=== PATIENT | female | born 1940 | race Caucasian/White ===

== ENCOUNTER 2016-09-28 20:02 | Emergency (ER) | payer MEDICARE ==
--- NOTE | 2016-09-28 20:45 | ERNOTE ---
Chest Pain/Cardiac HPI Chief Complaint: Tachycardia Time Seen by Provider: 09/28/16 20:31 Source: patient Exam Limitations: no limitations Immunizations: IMMUNIZATION HX Immunizations Up to Date Yes History of Influenza Vaccine Yes Hx Pneumococcal Vaccination Yes Allergies/Adverse Reactions: Allergies penicillin G Adverse Reaction (Verified 09/28/16 20:09) Home Medications: HOME MEDICATIONS Levothyroxine Sodium [Synthroid] 25 mcg PO MOFR 09/28/16 [Last Taken Unknown] Levothyroxine Sodium [Synthroid] 50 mcg PO SUTUWETHSA 09/28/16 [Last Taken Unknown] Lovastatin 40 mg PO DAILY 09/28/16 [Last Taken Unknown] Narrative: Pt has had PAC's for nearly a year, since last week she has had more palpitations that last longer and seem more "fluttering" than her usual PAC's Timing: getting worse Severity/Quality: moderate Location: central Activities at Onset: sleep Modifying Factors - Improves: Present: nothing Modifying Factors - Worsens: Present: nothing Nitro Today/Relief: no nitro taken today Aspirin Treatment Today: no aspirin today Prior Chest Pain/Cardiac Workup: Denies: prior chest pain Review of Systems - Review of Systems Constitutional: Absent: recent illness EYE: Present: no symptoms reported ENT: Present: other - Jaw pain (pressure) left side. Absent: nose congestion Respiratory: Absent: shortness of breath Cardiology: Present: See HPI Gastrointestinal/Abdominal: Present: other - dyspepsia occasionally Genitourinary: Present: no symptoms reported Musculoskeletal: Absent: back pain, muscle pain Skin: Present: no symptoms reported Neurological: Present: no symptoms reported Endocrine: Absent: excessive sweating, flushing Hematologic/Lymphatic: Present: no symptoms reported Psych: Present: no symptoms reported - Patient's Past Medical History Patient History - Medical: Hypothyroidism, Other Patient History - Cardiac/Respiratory: Arrhythmias, Hyperlipidemia Patient History - Cancer: No Hx of Cancer Patient History - Surgical Procedures: Other - Social History Living Situations: home Psych History: No pertinent hx Smoking Status: Former smoker Have you smoked in the past 12 months: No Do you dip or chew tobacco: No Alcohol Use: none Drug Use: none - Immunizations Immunizations Up to Date: Yes Hx Pneumococcal Vaccination: Yes History of Influenza Vaccine: Yes Physical Exam - Physical Exam General Appearance: Present: wd/wn, alert, no apparent distress Eye Exam: Normal inspection: bilateral, PERRL: bilateral Ears, Nose, Throat: Present: normal ENT inspection Neck: Present: normal inspection, nontender Respiratory: Present: no respiratory distress, normal breath sounds, lungs clear Cardiovascular/Chest: Present: no murmur, extra beats Back Exam: Present: normal inspection, normal range of motion Extremity Exam: Present: normal inspection, normal range of motion, no edema Neurological Exam: Present: alert, oriented, normal mood/affect, no motor/ sensory deficits Skin Exam: Present: normal color, warm/dry Lymphatic Exam: Present: no adenopathy ED Progress - Results and Orders Patient's Lab Results:: I have reviewed the patient's lab results. Results and Orders: Laboratory Tests 09/28/16 09/28/16 20:45 21:01 WBC 11.4 H Hgb 15.3 Hct 45.4 Plt Count 322 Sodium 145 H Potassium 4.0 Chloride 108 H Carbon Dioxide 26.3 Anion Gap 14.7 H BUN 12 Creatinine 0.87 Est GFR (Non-Af Amer) 67 Random Glucose 109 Calcium 9.3 Total Bilirubin 0.9 AST 23 ALT 30 Alkaline Phosphatase 76 Troponin I Less than 0.017 Total Protein 7.5 Albumin 4.0 - Vital Signs Patient's Vital Signs:: I have reviewed the patient's vital signs. Vital Signs: Vital Signs 09/28/16 20:05 Temperature 37.0 C Pulse Rate 122 H Respiratory 18 Rate Blood Pressure 151/80 O2 Sat by Pulse 95 Oximetry - EKG EKG: nonspecific ST T wave changes - ST depression HR 112 EKG read: Interp. by me EKG Comments: After HR slowed down (90) EKG repeated. Repeat EKG showed NSR with frequent PVC 's, no ST changes. Left anterior fascicular block - X-Ray X-Ray #1 X-Ray: chest Interpretation: Interp. by me X-ray Comments: No cardiopulmonary abnormalities - Progress/Reassessment Chief Complaint: Tachycardia Progress:: Improved Progress Note-Subjective: 09/28/16 23:58 pt asymptomatic prior to discharge. no palpitations Due to her symptoms that suggest a longer arrhythmia then we have seen tonight and her only abnormality being frequent PVC's I have placed a holter monitor to rule out runs of V tach. Encouraged patient to return to the ER if she has worsening symptoms and see her PCP soon. Departure - Departure Clinical Impression: Palpitation Disposition: Home Follow Up Needed Condition: Good Instructions: Palpitations, [id number] Additional Instructions: have your records faxed to your regular doctor and follow up there as soon as possible. Return to ER if you have continued or worsening symptoms Referrals: ENEIDA MERCADO [Primary Care Provider] -
--- OUTSIDE RECORDS SUMMARY | 2016-09-28 20:47 | XMS REPORT | Continuity of Care Document ---
:1940 Author Organization [facility] ([facility]) Address [address] [place] [address] Phone [phone] Care Team Providers Name Role Phone Faith Perez Primary Care Provider [phone] Source Comments This disclosure is being made pursuant to the Care Everywhere program, applicable federal and state laws, and may not contain all informaitonavailable regarding this patient.[facility] ([facility]) Active Allergies and Adverse Reactions Allergen Noted Date Severity Reactions Comments Penicillins site of pcn injection hot et red; told would have to be skin tested Current Medications Prescription Sig. Disp. Refills Start Date End Date Status aspirin 81 mg tablet take 81 mg by Active mouth daily. CALCIUM Take 1 Tab by Active CARBONATE/VITAMIN D3 mouth daily. (CALTRATE-600 PLUS VITAMIN D3 PO) levothyroxine 25 mcg Take 1 tablet (25 90 tablet 11 12/08/2015 Active tablet mcg total) by mouth 2 times weekly. Mon and Michelet lovaSTATIN 40 mg tablet Take 1 tablet (40 90 tablet 12/08/2015 Active mg total) by mouth every evening. levothyroxine 50 mcg Take 1 tablet (50 90 tablet 12/08/2015 Active tablet mcg total) by mouth daily. Sun,Tues,Wed,Thur s,Sat. 25 mcg Mon & Fri artificial tears Instill onto both Active (GENTEAL) 0.3 % eyes at bedtime. ophthalmic gel artificial tears Instill 1 Drop Active (ARTIFICIAL TEARS) onto both eyes 3 ophthalmic solution times daily. NAPROXEN SODIUM (ALEVE Active PO) prednisoLONE sodium Instill 1 Drop 10 mL 0 02/28/2016 Active phosphate 1 % onto the left eye ophthalmic solution daily. lansoprazole 30 mg Take 30 mg by Active capsule mouth daily. loperamide 2 mg capsule Take 2 mg by Active mouth 4 times daily as needed. Active Problems Problem Noted Date Myopia of both eyes with astigmatism and presbyopia 08/28/2016 General medical exam 12/08/2015 Overview: Declines colon cancer screen History of pheochromocytoma 12/07/2015 Retinal detachment with single break 11/04/2015 Retinal angioma 11/04/2015 Cataract, left eye 02/26/2014 Macular hole of right eye 02/26/2014 Fuch's endothelial dystrophy 02/26/2014 Fracture of ankle, open 11/10/2013 Overview: Now fused, cannot reach 90 degrees Former smoker 11/10/2013 Overview: Less than 30 pack years H/O vaginal hysterectomy 11/08/2012 Overview: Has ovaries Osteopenia 11/08/2012 Overview: 2005 dexa -1.4 2015 T -1.7 Other and unspecified hyperlipidemia 12/26/2011 SK (seborrheic keratosis) 09/13/2009 Prediabetes 09/13/2009 Hypertriglyceridemia 09/13/2009 Hypothyroidism 09/11/2009 GERD (gastroesophageal reflux disease) 09/11/2009 Overview: 2009 failed pepcid, controlled with prevacid 15mg 2015 off PPI, occas TUMS/ pepcid OTC 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 The family is positive for the [place] von Hippel-Lindau disease mutation , not associated with renal cell [place] PATIENT HAD MULTIPLE LASERS IN THE PAST WITH DR. FONSECA. LAST ONE WAS ABOUT 4 YEARS AGO Right Eye Left Eye Time To Recurrence: Time To Recurrence: Date VA (D cc) CMT Status Procedure VA (D cc) CMT Status Procedure Cmts 12/14/2015 20/500 Focal laser (indirect) 20/20 -3 Palpitations 08/31/2008 Overview: occas PACs Resolved Problems Problem Noted Date Resolved Date General medical exam 09/21/2010 12/11/2011 Overview: Declines cscope Fracture, humerus closed 09/13/2009 12/11/2011 Overview: S/p ORIF left Hyperlipidemia LDL goal < 100 09/13/2009 12/26/2011 Other and unspecified hyperlipidemia 09/11/2009 12/11/2011 Endometriosis 09/11/2009 12/11/2011 S/P CYNTHIA (total abdominal hysterectomy) 09/11/2009 12/11/2011 Overview: Has ovaries Tachycardia, unspecified 08/31/2008 09/11/2009 Other abnormal blood chemistry 08/31/2008 09/11/2009 Unspecified disorder of kidney and ureter 06/30/2008 09/11/2009 Benign neoplasm of adrenal gland 06/29/2008 09/11/2009 Sensorineural hearing loss, unspecified 01/23/2008 09/11/2009 Difficulty in walking(719.7) 05/30/2006 09/11/2009 Enthesopathy of hip region 05/16/2006 09/11/2009 Nonspecific abnormal results of liver function study 04/19/2006 09/11/2009 Other screening mammogram 06/15/2005 03/16/2009 Unspecified disorder of adrenal glands 12/07/2004 03/16/2009 Other congenital hamartoses, not elsewhere classified 12/07/2004 09/11/2009 Encounter for long-term (current) use of other medications 07/07/20042008 Follow-up examination following completed treatment with 07/07/20042008 high-risk medications, not elsewhere classified Unspecified follow-up examination 07/07/2004 03/16/2009 Unspecified hypothyroidism 07/07/2004 09/11/2009 Pure hypercholesterolemia 07/07/2004 09/13/2009 Other and unspecified hyperlipidemia 07/07/2004 03/16/2009 Most Recent Encounters Date Type Specialty Providers Description 09/13/2016 Office Visit Ophthalmology - Ruma Barfield, Dx: Retinal Specialty hemangioblastomatosis (Primary Dx) 08/28/2016 Office Visit Ophthalmology - Subj: Appointment Scheduled Specialty 08/28/2016 Office Visit Ophthalmology - Subj: Appointment Scheduled Specialty 08/28/2016 Office Visit Ophthalmology - Poonam Bernal, Dx: Macular hole of right Specialty OD eye (Primary Dx) Ruma Barfield MD 08/28/2016 Office Visit Ophthalmology - Poonam Bernal, Dx: Myopia of both eyes Specialty OD with astigmatism and presbyopia (Primary Dx) Immunizations Name Dates Previously Given Next Due Influenza, unspecified 01/12/2014 Pneumococcal Conjugate, PCV13 (Prevnar 13) 12/02/2014 Pneumococcal, unspecified 05/14/2003 Td, adsorbed adult PF 06/15/2005 Tdap 11/08/2012 Social History Tobacco Use Types Packs/Day Years Used Date Former Smoker Cigarettes 2 40 Quit: 06/11/1978 Smokeless Tobacco: Former User Tobacco Cessation:Counseling Given: Yes Comments: Alcohol Use Drinks/Week oz/Week Comments Yes 2 Cans of beer 1.2 social Last Filed Vital Signs Vital Sign Reading Time Taken Blood Pressure 134/64 05/30/2016 10:15 AM JAIL GUARD Pulse 68 05/30/2016 10:15 AM JAIL GUARD Temperature 36.7 C (98.1 F) 05/30/2016 9:36 AM JAIL GUARD Respiratory Rate 18 05/30/2016 10:15 AM JAIL GUARD Height 1.778 m (5' 10") 05/30/2016 6:53 AM JAIL GUARD Weight 79 kg (174 lb 2.6 oz) 05/30/2016 6:16 AM JAIL GUARD Body Mass Index 24.99 05/30/2016 6:16 AM JAIL GUARD Oxygen Saturation 99% 05/30/2016 6:53 AM JAIL GUARD Plan of Care Patient Goal Type Goal Weight Weight below 75 kg (165 lb) Date Type Specialty Providers Description 10/18/2016 Appointment Ophthalmology - Ruma Barfield MD Subj: Appointment Specialty [address] [place] [address] [phone] (Fax) 12/08/2016 Appointment General Internal Faith Perez MD Subj: Appointment Medicine [address] [place] [address] [phone] (Fax) Health Maintenance Due Date Last Done Comments Zoster Vaccine 1998 Hepatitis B Vaccine (3 of 3 04/12/2014 11/10/2013 - Twinrix Series) (Declined), 11/08/2012 (Declined) Pneumococcal Vaccine (2 of 2 12/03/2015 12/02/2014 - PPSV23) Mammogram 04/29/2016 04/29/2015, Additional history exists 12/30/2012, 12/26/2011 Influenza Vaccine: Seasonal 12/12/2016 01/12/2014 (Season Ended) Lipid Disorder Screening 12/03/2019 12/02/2014, Additional history exists 11/10/2013, 11/08/2012 Td Vaccine 11/08/2022 11/08/2012, 06/15/2005 Colonoscopy 11/11/2023 11/10/2013 (Declined), 11/08/2012 (Declined) Tdap Vaccine Completed 11/08/2012 Osteoporosis Screening (DXA Completed 04/29/2015, Bone Density) 08/14/2005 Procedures from Last 3 Months Procedure Name Priority Date/Time Associated Diagnosis Comments SC DESTRUC Routine 09/13/2016 2:17 Retinal Results for this RETINAL PM CDT hemangioblastomatosis procedure are in DELFINO,PHOTOCOAG the results section. Results from Last 3 Months RETINA/CHOROID/VITREOUS PROCEDURE (09/13/2016 2:17 PM) Narrative Ruma Barfield MD 09/13/20162:17 PM Retinavitreous Injection Clinic Current Date: 09/13/2016 Subjective: Roxana Chung is a 76 y.o. female with a history of VHL with recurrent hemangioblastomas right eye History of Present Illness: Roxana Chung is a 76 y.o. female who returns today for continued management of retinal hemangioblastoma with laser. Her last injection was 2 weeks ago with Avastin in the right eye. She reports no problems with the previous injection.She reports that vision in the eye undergoing treatment seemsBetter. She got new glasses about a week ago. She reports more frequently when she lays down she sees a 'bright false pass' in the center of her vision in the right eye. The fellow eye remains stable. Active Problem List with Overview Notes Diagnosis Myopia of both eyes with astigmatism and presbyopia General medical exam Overview Note: Declines colon cancer screen History of pheochromocytoma Retinal detachment with single break Retinal angioma Cataract, left eye Macular hole of right eye Fuch's endothelial dystrophy Fracture of ankle, open Overview Note: Now fused, cannot reach 90 degrees Former smoker Overview Note: Less than 30 pack years H/O vaginal hysterectomy Overview Note: Has ovaries Osteopenia Overview Note: 2006 dexa -1.4 2015 T -1.7 Other and unspecified hyperlipidemia SK (seborrheic keratosis) Prediabetes Hypertriglyceridemia Hypothyroidism GERD (gastroesophageal reflux disease) Overview Note: 2009 failed pepcid, controlled with prevacid 15mg 2015 off PPI, occas TUMS/ pepcid OTC Retinal hemangioblastomatosis Overview Note: Right Eye Left Eye Time To Recurrence:Time To Recurrence: Date VA (D cc) CMT Status Procedure VA (D cc) CMT Status Procedure Cmts 08/28/2016 ECC Avastin lot #[id number] 20/40 +2 Pheochromocytoma, benign Overview Note: Asymptomic, removed 1987 Pseudophakia Nuclear sclerosis Von Hippel-Lindau syndrome Overview Note: The family is positive for the [place] von Hippel-Lindau disease mutation, not associated with renal cell [place] PATIENT HAD MULTIPLE LASERS IN THE PAST WITH DR. FONSECA. LAST ONE WAS ABOUT 4 YEARS AGO Right Eye Left Eye Time To Recurrence:Time To Recurrence: Date VA (D cc) CMT Status Procedure VA (D cc) CMT Status Procedure Cmts 12/14/2015 20/500 Focal laser (indirect) 20/20 -3 Palpitations Overview Note: occas PACs Review of Systems: General: negative Cardiovascular: no chest pain or dyspnea on exertion Respiratory: no cough, shortness of breath, or wheezing Gastrointestinal: no abdominal pain, change in bowel habits, or black or bloody stools Endocrine: negative Neurological: no TIA or stroke symptoms Objective: Base Eye Exam Visual Acuity (Snellen - Linear) Right Left Dist cc 20/800ecc 20/25 +2 Dist ph cc 20/600 NI Correction:Glasses Tonometry (Tonopen, 1:14 PM) Right Left Pressure 10 10 Pupils Dark Light React APD Right 7 7 Non-reactive None Left 3 2 Brisk None Neuro/Psych Oriented x3:Yes Mood/Affect:Normal Dilation Right eye:0.5% Tropicamide, 2.5% Phenylephrine @ 1:14 PM Slit Lamp and Fundus Exam External Exam Right Left External Normal Slit Lamp ExamRight Left Lids/Lashes Normal Conjunctiva/Sclera Clear and quiet Cornea Clear Anterior Chamber Deep and quiet Iris dilated Lens PCIOL, small opening in posteiror capsule centrally Vitreous removed Fundus Exam Right Left Disc perfused Macula attached, macular hole edges appear closed with central atrophy Vessels Angiomas fibrosed treated temporally and superonasally and inferiorly, no new angiomas visible. PeripheryRetina all attached 360 degrees on scleral buckle with extensive CR scarring in periphery especially inferiorly, temporally, superonasally. New angioblastoma superotemporally and inferotemporally less active than before AVastin injection. Test Results No OCT today Assessment: Encounter Diagnoses ICD-10-CM ICD-9-CM 1. 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 Plan: Treat today with focal laser to retinal hemangioblastomasin right eye(s). Patient will return to clinic in 1 month for repeat evaluation in the IRL procedure/injection clinic.No OCT needed.May need repeat injection or laser if angiomas still active. Staff Involved Staff Only Procedure: Procedure: Retina Focal laser (macular edema, small tumor) Laterality: right Additional Procedure Detail: Procedure type:Focal laser to retinal vascular tumors Pre-op diagnosis retinal hemangioblastoma (VHL) Post op diagnosis same Eye treated:rightEye(s) Surgeon:Ruma Barfield MD Transit Survey Worker:None Anesthesia topical: Laser system used:Diode green, slit lamp delivery Complications:none Procedure narrative: After obtaining informed consent, marking of the operative eye, and a time out, and review of allergies, the patient was placed at the slit lamp laser delivery system.One drop of proparacaine was administered to the operative eye.A [place] Quaspheric contact lens was applied to the eye.Using fundus photos taken before the intravitreal anti-VEGF therapy administration as a guide, confluent laser was applied to the two areas of early activity of the hemangioblastomas on the buckle superoempotally and inferotemporally # laser spots94 Spot size: 100 microns Power:190 mW Spot duration 240 mSec NO laser was applied in the posterior pole. The contact lens was removed from the eye. I performed the entire procedure.No resident or fellow participated in this procedure.Post procedure expectations and instructions were discussed and the patient was provided written information about the laser procedure in the AVS.The patient left the laser room in satisfactory condition. Ruma Barfield M.D. Clinical Professor of Ophthalmology and Visual Science Vitreoretinal Service EYE PROC - INTRAVITREAL INJECTION (09/01/2016 12:58 AM) Narrative Ruma Barfield MD 09/01/2016 12:58 AM Retinavitreous Service Clinic Note Encounter Date: 08/28/2016 Chief Complaint Chief Complaint Patient presents with Decreased Visual Acuity Bernal refraction then Gehrs 2 mo History of Present Illness Roxana Chung is a 76 y.o. here today for blurred vision affecting right eye for 9 months.These symptoms are described as moderate.Symptoms occur all of the time. Since onset, the symptoms have improved, but has remained stable since the last. Modifying factors include PPV/SBP/cryo/laser/FTMH repair in the right eye with oil/C3F8- small volume (11-04-15) for retinal detachment and focal laser right eye for retinal hemangioblastoma (12/14/15) and Pars plana vitrectomy (23 gauge), silicone oil removal, posterior capsulotomy, air-fluid exchange, 15% SF6 gas RIGHT eye (05/30/16) which makes the symptoms improved.She experiences occasional flashes of light in the right temporal corner of right eye when she lays down.No new floaters or shadow in either eye. The fellow eye remains stable with no new symptoms since her last visit. She was refracted with Dr. Bernal today. (to 20/600 OD and 20/20 OS) History: Past Surgical History Procedure Laterality Date Tumor excision pheochromocytoma Hysterectomy, vaginal Pr remv cataract extracap,insert lens05/29/2008 Procedure:PHACO W/WO IOL; Surgeon:LINDA FRAIRE; Location:[facility]; Service:Ophthalmology Eye surgery laser coagulation angioma Rpr complex retina detach vitrectomy & memb peel Right 11/04/2015 Procedure: COMPLEX RETINAL DETACHMENT REPAIR, 23G;Surgeon: Ruma Barfield MD;Location: MAIN OR;Service: Ophthalmology Social History Substance Use Topics Smoking status: Former Smoker -- 2.00 packs/day for 40 years Types: Cigarettes Quit date: 06/11/1978 Smokeless tobacco: Former User Alcohol Use: 1.2 oz/week 2 Cans of beer per week Comment: social Family History Problem Relation Age of Onset Genetic Disease Father VHL Heart Attack Father Other Father VHL Genetic Disease Sister VHL Other Sister VHL Diabetes Maternal Grandfather Coronary Artery Disease Sister at 66yo, has RA Arthritis-rheumatoid Sister Other Sister VHL Breast Cancer Neg Hx Other Other Review of Systems General: negative Cardiovascular: negative Respiratory: negative Gastrointestinal: negative Endocrine: negative Neurological: negative Exam Base Eye Exam Visual Acuity (Snellen - Linear) Right Left Dist cc ECC 20/40 +2 Dist ph ccNI Correction:Glasses Brought forwards from Dr. Bernal's exam today Tonometry (Tonopen, 2:29 PM) Right Left Pressure 10 11 Pupils Dark Light React APD Right 5.5 5.5 Non-reactive None Left 3 2 Brisk None Neuro/Psych Oriented x3:Yes Mood/Affect:Normal Dilation Right eye:0.5% Mydriacyl, 2.5% Phenylephrine @ 2:29 PM Slit Lamp and Fundus Exam External Exam Right Left External Normal Slit Lamp Exam Right Left Lids/Lashes Normal Conjunctiva/Sclera Clear and quiet Cornea Clear Anterior Chamber Deep and quiet Iris dilated Lens PCIOL, small opening in posteiror capsule centrally Vitreous removed Fundus Exam Right Left Disc perfused Macula attached, macular hole edges appear closed with central atrophy Vessels Angiomas fibrosed treated temporally and superonasally and inferiorly, no new angiomas visible. PeripheryRetina all attached 360 degrees on scleral buckle with extensive CR scarring in periphery especially inferiorly, temporally, superonasally. , Definite new angioblastoma, Questionable new angioma - slight blush Test Results Indication for OCT:Macular hole - OCT to monitor response to tx and guide further tx OCT EYE: right eye Reliable Macular contour: macular hole open but edges flat Retinal architecture and layers: mild cystic change Subretinal space: no SRF RPE layer: unremarkable Choroid: unremarkable CMT 80 microns Impression:Open macular hole OD Impact of testing results on patient care:Helps to guide management. I reviewed the results of this test with the patient in lay terms during the visit today. Ruma Barfield M.D. Clincal Wreath Maker of Ophthalmology Vitreoretinal Service Indication for photos: OD: Reliable Media: clear Disc: unremarkable Vessels: no major occlusions Macula macular hole Mid-periphery: attached. Far- periphery 2 angiomas on buckle suprotemporally and inferiorly Impression: macular hole OD.Recurrent hemangioma activity OD Implications for care: helps to guide management - will use photos to guide laser I reviewed the actual appearance and results of this test with the patient in lay terms during the visit today. Ruma Barfield M.D. Wreath Maker of Clinical Ophthalmology Vitreoretinal Service Diagnoses (H35.341) Macular hole of right eye(primary encounter diagnosis) (D18.09) Retinal hemangioblastomatosis (H52.13,H52.203,H52.4) Myopia of both eyes with astigmatism and presbyopia (D18.09) Retinal angioma Assessment recurrent hemangioblastoma activity (due to VHL) Macular hole - large with flat edges.I do not think additional surgery would be of benefit. Plan add Avastin OD today.Return in 2 weeks for laser tx angiomas Staff Involved Staff Only Intravitreal injection Procedure:Intravitreal Injection Eye Treated::right Pre-op Diagnosis:VHL,retial hemangioblasoma Post op Diagnosis:VHL,retinal hemangioblastoma Medication Injected :1.25mg Avastin Prep:5 % Povidine Iodine to conjunctiva before injection and 10% povidone prep to eyelids before lid speculum is placed.Lid speculum used.(Caliper also utilized if phakic) Pre/Post Eyedrops: 0.5% ketorolac drops administered after injection if not allergic Anesthesia: Topical Proparacaine drops and or tetracaine drops (per pt preference), 0.2 cc of 2% nonpreserved lidocaine injected subconjunctivally superotemporally Surgeon:Ruma Barfield MD Complications: none Specimens:None After anesthesia and the povidone iodine prep, and lid speculum placement, the medication was injected into the vitreous cavity through the pars plana (3.0 mm posterior to the limbus for pseudophakic and aphakic eyes, 3.5 mm posterior to the limbus for phakic eyes) using a 32 gauge needle.The needle was with drawn. The fundus was inspected. Post injection exam: HEMODIALYSIS PATIENT CARE SPECIALIST perfused in eye(s) treatedyes CF with operative eye(s) yes Notes: No problems with injection, no atypical findings. I performed the entire procedure.No resident or fellow participated in the procedure. Ruma Barfield M.D. Clinical Professor of Ophthalmology Vitreoretinal Service COLOR FUNDUS PHOTOGRAPHY RIGHT EYE (08/28/2016 4:14 PM) Narrative See clinic note for the day of the encounter when this test was performed for results and interpretation of this test Ruma Barfield M.D. Clincal Wreath Maker of Ophthalmology Vitreoretinal Service See clinic note for detailed results and interpretation. OCT MACULA RIGHT EYE (08/28/2016 2:44 PM) Narrative See clinic note for the day of the encounter when this test was performed for results and interpretation of this test Ruma Barfield M.D. Clincal Wreath Maker of Ophthalmology Vitreoretinal Service See clinic note for detailed results and interpretation.
[2016-09-28 20:59] LABS: Hematocrit 45.4 % (37.0-47.0); Hemoglobin 15.3 gm/dL (12.5-16.0); Mean Corpuscular Hgb Conc 33.7 g/dl (32-36); Mean Platelet Volume 8.6 fl (6.0-9.5); Neutrophil # 7.6 K/mm3 (1.3-6.0); Neutrophil % 66.9 % (42-75.0); Platelet Count 322 K/mm3 (150-450); Red Cell Distribution Width 13.1 % (11.5-14.0); White Blood Count 11.4 K/mm3 (4.0-10.5)
[2016-09-28 21:17] LABS: ALT 30 U/L (19-67); AST 23 U/L (0-48); Alkaline Phosphatase * 76 U/L (50-170); Anion Gap 14.7 mmol/L (6.8-13.8); BUN/Creatinine Ratio 13.8 (9.0-21.6); Bilirubin, Total 0.9 mg/dL (0.0-1.1); Blood Urea Nitrogen 12 mg/dL (3-23); Calcium * 9.3 mg/dL (7.9-10.9); Carbon Dioxide 26.3 mmol/L (24-32.6); Chloride 108 mmol/L (97-106); Glucose * 109 mg/dL (70-110); Sodium 145 mmol/L (132-142); Total Protein 7.5 gm/dL (6.2-8.2); Troponin I Less than 0.017 ng/ml (0.00-0.10)
[2016-09-28 22:44] VITALS: BP 157/82
== END 2016-09-28 23:11 | disposition home or self-care (01) ==
LOC: ER 20:02
DX: R00.2 Palpitations (principal); E03.9 Hypothyroidism, unspecified; E78.5 Hyperlipidemia, unspecified